=== PATIENT | female | born 2000 | race Caucasian/White ===

== ENCOUNTER 2022-07-19 17:48 | Inpatient (IN) | payer OTHER, SELFPAY ==
[2022-07-19] VITALS (11 sets, daily range): BP systolic 109–124; BP diastolic 56–65; PULSE 70–111; TEMP 36.6–36.7; O2SAT 97–100; BMI 27.1
[2022-07-19] MEDS: Lactated Ringers 1,000 ML 50 ML IV (18:34)
[2022-07-19 18:52] LABS: Absolute Lymphocyte Count 1.84 X10^3/uL (0.83-4.51); Absolute Neutrophil Count 9.5 X10^3/uL (2.0-7.7); Basophil# 0.04 X10^3/uL; Basophil% 0.3 % (0-1); Eosinophil# 0.12 X10^3/uL; Eosinophils% 0.9 % (0-5); Hematocrit 36.5 % (37-47); Hemoglobin 12.1 g/dL (12.0-15.0); Lymphocyte # 1.84 X10^3/ul (0.83-4.51); Lymphocyte % 14.4 % (19-41); Mean Corp Hgb Conc 33.2 g/dL (32-36); Mean Corpuscular Hgb 30.9 pg (27.0-32.0); Mean Corpuscular Volume 93.4 fL (81-99); Mean Platelet Vol. 10.2 fl (6.2-12.0); Monocyte# 1.13 X10^3/uL; Monocyte% 8.8 % (0-10); NRBC Flagged by Analyzer 0 % (0-5); Neutrophil # 9.46 X10^3/uL (2.7-7.7); Platelet Count 227 K/mm3 (150-450); RBC Distribution Width SD 44.4 fl (35.1-43.9); Red Blood Count 3.91 M/mm3 (4.2-5.4); White Blood Count 12.8 K/mm3 (4.4-11.0)
[2022-07-19] MEDS: Oxytocin 10 UNITS/ML Vial IM (21:41)
[2022-07-19] MEDS: fentaNYL 100 MCG/2 ML Ampul IV (21:57)
[2022-07-19] MEDS: 0.9% Saline Lock 10 ML Syringe IV (22:00)
--- NOTE | 2022-07-19 22:23 | HP.PCM.OB_ITS ---
HPI - General General Date of Admission: 07/19/22 HPI Narrative ANYA SIMS, is a 22 F at 39.4 weeks gestation that presents in spontaneous labor. She started having contractions this morning that continued throughout the day and increased in frequency and intensity. Positive movement. Denies any loss of fluid or vaginal bleeding. complicated by GBS positive, hx of depression and abnormal ultrasound of fetus. Seen by MFM for echogenic bowel and kidneys. 23 week US at [facility] normal. Follow up after delivery with [facility]. Maternal Data Information CHANCE Calculator Estimated Delivery Date Method Current WG Current Estimate 07/22/22 Manual 39w 4d Final CHANCE: 07/22/22 [facility] Medical History (Updated 07/19/22 @ 22:30 by Amena Walton CNM) Abnormal ultrasound Anemia Anxiety Depression Family history of congenital heart defect Fifth disease Home Medications ferrous sulfate 325 mg (65 mg iron) tablet (Iron (ferrous sulfate)) 325 mg PO DAILY 07/19/22 [History Last Taken 07/12/22 08:00] fgrdocvz-[id number]-Wf-FA 1 mg tablet 1 tab PO DAILY 07/19/22 [History Last Taken 07/19/22 09:00] Allergy/AdvReac Type Severity Reaction Status Date / Time No Known Allergies Allergy Verified 07/19/22 17:20 Social History Smoking Status: Former smoker History Elective abortions Hx Para 0 Spontaneous abortions Hx # Term Pregnancies Ectopic pregnancies Hx # Pregnancies Multiple births # of living children Visit Details OB Flowsheet Initial Weight: Not Recorded Date -?-?-?-?-?-?-?-?-?-?-?-?- EGA Weight BP Urine Prot -?-?-?-?-?-?-?-?-?-?-?-?- Glucose FHR FuHt Pres Dilation -?-?-?-?-?-?-?-?-?-?-?-?- Effaced St Visit Note 07/19/22 -?-?-?-?-?-?-?-?-?-?-?-?- 39w 4d 162 lb 11.218 oz 109 /57 119/59 124/61 121/65 -?-?-?-?-?-?-?-?-?-?-?-?- -?-?-?-?-?-?-?-?-?-?-?-?- ROS Eyes Eyes: Denies blurry vision, change in vision or spots in vision ENT HEENT: Denies dizziness or headache(s) Cardiovascular Cardiovascular: Denies abdominal pain, chest pain or dyspnea Respiratory/Chest Respiratory/Chest: Denies cough, dyspnea, shortness of breath at rest or shortness of breath with exertion Gastrointestinal Gastrointestinal: Denies abdominal pain, diarrhea or vomiting Genitourinary Genitourinary: Denies change in urinary stream, difficulty urinating or dysuria Musculoskeletal Musculoskeletal: Reports none Integumentary Integumentary: Denies rash Neurologic Neurologic: Denies dizziness, headache(s), memory loss or weakness Psychiatric Psychiatric: Reports none Vital Signs Vital Signs Vital Signs: 07/19/22 17:22 07/19/22 17:22 07/19/22 17:27 Temperature Temperature Source Temporal Pulse Rate 76 Blood Pressure 109/57 L BP Systolic 109 BP Diastolic 57 Pulse Ox 07/19/22 17:27 07/19/22 19:24 07/19/22 19:24 Temperature 98.1 F Temperature Source Pulse Rate 73 Blood Pressure 119/59 L BP Systolic 119 BP Diastolic 59 Pulse Ox 07/19/22 19:23 07/19/22 19:23 07/19/22 19:23 Temperature 98.1 F Temperature Source Temporal Pulse Rate Blood Pressure BP Systolic BP Diastolic Pulse Ox 100 07/19/22 22:20 07/19/22 22:20 07/19/22 22:20 Temperature Temperature Source Pulse Rate 98 111 H Blood Pressure 124/61 H BP Systolic 124 BP Diastolic 61 Pulse Ox 07/19/22 22:20 Temperature Temperature Source Pulse Rate Blood Pressure BP Systolic BP Diastolic Pulse Ox 97 Weight Weight: 162 lb 11.218 oz Body Mass Index (BMI) 27.1 Physical Exam Const alert and no apparent distress General Appearance: cooperative and comfortable Exam Limitations: no limitations HEENT normocephalic Eyes General Eye: normal appearance of both eyes Neck full ROM General: normal visual inspection Chest Chest: symmetrical chest wall rise Resp normal respiratory effort and normal air movement Effort and Inspection: symmetric chest movement Auscultation: clear to auscultation bilaterally Cardio regular rate and regular rhythm GI normal to inspection, nondistended, normoactive bowel sounds Back/Spine normal ROM Extremity full ROM and no calf tenderness General Extremity: normal exam except as noted Skin no rashes or lesions noted Neuro CN's II-XII intact bilaterally Psych mental status grossly normal Labs Labs Labs: Blood Type A POSITIVE Antibody Screen NEGATIVE Hct 36.5 % (37-47) L Hgb 12.1 g/dL (12.0-15.0) Rubella- immune HB neg HC- neg RPR- NR HIV-NR GBS positive Assessment & Plan (1) 39 weeks gestation of : (2) Spontaneous onset of labor: (3) Positive GBS test: PLAN: Plan Admit to labor and delivery Routine labs SL IV in between antibiotics CE 4.5/60/-1 TOCO- contractions every 1-3 minutes Pain medication if indicated Warm water immersion Start PCN 5 million units IV x1 now and run PCN 3 million units IV every 4 hours until delivery IA Anticipate Dr. Domínguez notified of admission and is collaborating physician
--- NOTE | 2022-07-19 22:36 | EX.PCM.OBRPT ---
Assessment & Plan (1) (spontaneous vaginal delivery): (2) Care and examination of lactating mother: Maternal Data Information CHANCE Calculator Estimated Delivery Date Method Current WG Current Estimate 07/22/22 Manual 39w 4d Vaginal Delivery Maternal Presentation Maternal Presentation: - Maternal Presentation: at 39.4 that presented in spontaneous labor. Operative Information Date of Procedure: 07/19/22 Pre-Operative Diagnosis: Term gestation, Spontaneous onset of labor Post-Operative Diagnosis: , Live female Surgery / Procedure Performed: Spontaneous Vaginal Delivery Type of Anesthesia: None Estimated Blood Loss: 400 Time of Delivery: 21:35 Findings Description of Procedure: Called to patient's room. Patient found to be complete dilation with bulging membranes. A.R.O.M for clear fluid. Patient pushing well with contractions. With maternal effort, head delivered over intact perineum followed by anterior shoulder and remainder of . Vigorous female placed on maternal abdomen and was attended to by nursing staff. Pitocin 10 mg IM x 1 given for active management of the third stage of labor. 3 vessel cord was clamped and cut by FOB after delay. True knot in cord. placed immediately skin to skin with patient. After inspection, vagina and perineum intact. Small labial laceration noted that was hemostatic and did not warrant repair. Fundus firm 2 below U. Bleeding moderate and after vaginal sweep, small amount of clots expressed. EBL 400 cc. APGARS 8/9. Infant and patient bonding well at this time. Presentation: Vertex Amniotic Membrane Rupture Type: Artificial Time of Membrane Rupture: 2100 Amniotic Fluid Description: Clear Placental Delivery Description: Spontaneous Placenta Disposition: [facility] Cord Vessel Description: 3 Vessels Cord Entanglement: True Knot(s) Infant A Gender: Female (1 minute): 8 (5 minute): 9 Delayed Cord Clamping: Yes Post Vaginal Delivery Medications Given After Delivery: - (IM pitocin) Episiotomy Description: None Laceration: Vaginal Extension/lac (left labial) Complication Complications: None
[2022-07-20 00:05] VITALS: BP 119/61; PULSE 81
[2022-07-20] MEDS: Acetaminophen 500 MG Tablet 1000 MG PO ×2 (01:10→14:53)
[2022-07-20 04:20] VITALS: BP 109/48; PULSE 82; RESP 16; TEMP 37.2; O2SAT 95
[2022-07-20 09:05] VITALS: BP 112/58; PULSE 77; RESP 18; TEMP 37.2; O2SAT 96
[2022-07-20] MEDS: Naproxen 500 MG Tablet PO ×2 (09:16→21:39)
[2022-07-20] MEDS: Benzocaine/Lanolin/Aloe Vera 1 SPRAY EACH TOPICAL (11:14)
[2022-07-20 13:05] VITALS: BP 107/51; PULSE 70; RESP 18; TEMP 36.7; O2SAT 95
--- NOTE | 2022-07-20 13:11 | PCM.PN.OB ---
Subjective Subjective Patient seen at bedside. Sitting in chair. Feeling good. Ambulating and voiding without difficulty. with support. Pain controlled. Anticipate discharge home tomorrow. Objective Data Objective Data Vital Signs: Vital Signs Temp Pulse Resp BP Pulse Ox O2 Del Method 99.0 F 77 18 112/58 L 96 Room Air 07/20/22 09:05 07/20/22 09:05 07/20/22 09:05 07/20/22 09:05 07/20/22 09:05 07/20/22 09:05 Oxygen Delivery Method Room Air Weight: 162 lb 11.218 oz Body Mass Index (BMI) 27.1 Intake & Output: Intake and Output for Last 24 Hours 07/18/22 07/19/22 07/20/22 23:59 23:59 23:59 Intake Total 166.67 / 166.67 Output Total 550 / 550 Balance 166.67 / 166.67 -550 / -550 Lab / Micro Data Result Diagrams: 07/19/22 18:30 Labs: Laboratory Results - last 24 hr 07/19/22 18:30: WBC 12.8 H, RBC 3.91 L, Hgb 12.1, Hct 36.5 L, MCV 93.4, MCH 30.9, MCHC 33.2, RDW Std Deviation 44.4 H, RDW Coeff of Aysha 13.0, Plt Count 227, MPV 10.2, Immature Gran % (Auto) 1.600 H, Neut % (Auto) 74.0 H, Lymph % (Auto) 14.4 L, Warren % (Auto) 8.8, Eos % (Auto) 0.9, Baso % (Auto) 0.3, Absolute Neuts (auto) 9.5 H, Absolute Lymphs (auto) 1.84, Nucleated RBC % 0 07/19/22 18:30: Blood Type A POSITIVE, Antibody Screen NEGATIVE ROS Eyes Eyes: Denies blurry vision, change in vision or spots in vision ENT HEENT: Denies dizziness or headache(s) Cardiovascular Cardiovascular: Denies abdominal pain, chest pain or dyspnea Respiratory/Chest Respiratory/Chest: Denies cough, dyspnea, shortness of breath at rest or shortness of breath with exertion Gastrointestinal Gastrointestinal: Denies abdominal pain, diarrhea or vomiting Genitourinary Genitourinary: Denies change in urinary stream, difficulty urinating or dysuria Musculoskeletal Musculoskeletal: Reports none Integumentary Integumentary: Denies rash Neurologic Neurologic: Denies dizziness, headache(s), memory loss or weakness Physical Exam Const alert and no apparent distress General Appearance: cooperative and comfortable Exam Limitations: no limitations HEENT normocephalic Eyes General Eye: normal appearance of both eyes Neck full ROM General: normal visual inspection Chest Chest: symmetrical chest wall rise Resp normal respiratory effort and normal air movement Effort and Inspection: symmetric chest movement Auscultation: clear to auscultation bilaterally Cardio regular rate and regular rhythm GI normal to inspection, nondistended, normoactive bowel sounds Back/Spine normal ROM Extremity full ROM and no calf tenderness General Extremity: normal exam except as noted Skin no rashes or lesions noted Neuro CN's II-XII intact bilaterally Psych mental status grossly normal Assessment & Plan (1) Care and examination of lactating mother: (2) (spontaneous vaginal delivery): PLAN: Plan PPD 1 Routine care support Anticipate discharge home tomorrow
[2022-07-20 17:05] VITALS: BP 99/55; PULSE 79; RESP 18; TEMP 36.9; O2SAT 96
[2022-07-20 21:41] VITALS: BP 103/61; PULSE 68; RESP 16; TEMP 36.6; O2SAT 96
[2022-07-21 03:00] VITALS: BP 100/60; PULSE 65; RESP 16; TEMP 36.3; O2SAT 65
[2022-07-21] MEDS: Naproxen 500 MG Tablet PO (05:09)
--- NOTE | 2022-07-21 08:31 | PCM.PROGNOTE ---
Subjective Subjective patient seen at bedside, doing well. Patient reports good pain control. lochia mild. Objective Data Objective Data Vital Signs: Vital Signs Temp Pulse Resp BP Pulse Ox O2 Del Method 97.9 F 63 16 102/51 L 65 Nasal Cannula 07/21/22 07:54 07/21/22 07:54 07/21/22 07:54 07/21/22 07:54 07/21/22 03:00 07/21/22 03:00 Oxygen Delivery Method Nasal Cannula Weight: 73.8 kg Body Mass Index (BMI) 27.1 Intake & Output: Intake and Output for Last 24 Hours 07/19/22 07/20/22 07/21/22 23:59 23:59 23:59 Intake Total 166.67 / 166.67 Output Total 850 / 850 Balance 166.67 / 166.67 -850 / -850 Lab / Micro Data Result Diagrams: 07/19/22 18:30 Physical Exam Const alert and oriented x3 General Appearance: cooperative HEENT normocephalic Neck General: normal visual inspection GI soft to palpation and non-distended GI Narrative: Fundus firm Extremity normal to inspection and no calf tenderness Skin no rashes or lesions noted Neuro oriented x3 and CN's II-XII intact bilaterally Psych mental status grossly normal Assessment & Plan Assessment/Plan (1) Care and examination of lactating mother: (2) (spontaneous vaginal delivery): PLAN: Plan PPD# 2 , Doing well Routine care pain mgmt ambulation dc home
--- NOTE | 2022-07-21 08:32 | DCINST_ITS ---
Discharge Instructions Procedure Vaginal Delivery Diet Discharge Diet: No restrictions Activity May resume sexual activity in: 6-8 weeks Dressing / Incision Call your doctor if you observe: Fever of 101 or Higher, Inability to urinate, Using more than 1 pad per hour and Uncontrolled pain Follow Up Care Please Follow Up With: Daija Vicente MD When: 1-2 weeks post and again at 6 weeks post . [phone] Test Results: Test results from this visit will be discussed in further detail at your follow- up appointment, if applicable. Discharge Plan Admission Admit Date/Time: 07/19/22 17:48 Attending Provider: Amena Walton Discharge Orders/Prescriptions Prescriptions: New naproxen 500 mg Tablet 500 mg PO Q8H PRN PRN (Reason: Pain Score 1-3) Qty: 0 0RF Continued ferrous sulfate [Iron (ferrous sulfate)] 325 mg (65 mg iron) Tablet 325 mg PO DAILY [id number]-FA 1 mg Tablet 1 tab PO DAILY Disposition Disposition (needs filled in before D/C Order can be placed): Home, Self Care
[2022-07-21 08:54] VITALS: BP 102/51; PULSE 63; RESP 16; TEMP 36.6
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
== END 2022-07-21 13:45 | disposition home or self-care (01) | DRG 807 ==
LOC: WP 21:39 → WPOUT 07-20 11:02
PROVIDERS: Admitting Provider Advanced Practice Midwife; Visit Provider Advanced Practice Midwife
DX: O99.824 Streptococcus B carrier state complicating childbirth (principal); Z37.0 Single live birth; O69.2XX0 Labor and delivery complicated by other cord entanglement, with compression, not applicable or unspecified; Z3A.39 39 weeks gestation of pregnancy; Z87.891 Personal history of nicotine dependence
CPT/HCPCS: 59025; 59050; 85025; 86850; 86900; 86901; 99218; J7120; A4216; G0378

== ENCOUNTER → 2023-05-05 | Outpatient (CLI) | payer OTHER, SELFPAY ==
[2023-05-05 13:42] LABS: Absolute Lymphocyte Count 2.42 X10^3/uL (0.83-4.51); Basophil# 0.03 X10^3/uL; Basophil% 0.4 % (0-1); Eosinophil# 0.16 X10^3/uL; Eosinophils% 2.3 % (0-5); Hematocrit 41.5 % (37-47); Hemoglobin 13.9 g/dL (12.0-15.0); Lymphocyte # 2.42 X10^3/ul (0.83-4.51); Lymphocyte % 34.4 % (19-41); Mean Corp Hgb Conc 33.5 g/dL (32-36); Mean Corpuscular Hgb 29.9 pg (27.0-32.0); Mean Corpuscular Volume 89.2 fL (81-99); Mean Platelet Vol. 10.8 fl (6.2-12.0); Monocyte# 0.44 X10^3/uL; Monocyte% 6.3 % (0-10); NRBC Flagged by Analyzer 0 % (0-5); Neutrophil # 3.97 X10^3/uL (2.7-7.7); Neutrophil % 56.5 % (47-70); Platelet Count 273 K/mm3 (150-450); RBC Distribution Width CV 12.4 % (11.6-14.6); RBC Distribution Width SD 40.6 fl (35.1-43.9); Red Blood Count 4.65 M/mm3 (4.2-5.4)
[2023-05-05 14:01] LABS: Progesterone Level 12.66 ng/mL (See Comment); Vitamin B12 574 pg/mL (211-911); Vitamin D,25 Hydroxy 46.6 ng/mL
[2023-05-05 14:32] LABS: ALB/GLOB Ratio 1.1 RATIO (0.9-2.4); AST(SGOT) 14 U/L (15-37); Alanine Aminotransfer ALT/SGPT 20 U/L (13-56); Albumin, Serum 4.7 g/dL (3.2-5.0); Alkaline Phosphatase 84 U/L (45-117); Anion Gap 8 (5-15); BUN 10 mg/dL (7-18); BUN/Creat Ratio 11.9 RATIO (10-20); Calcium,Total 9.1 mg/dL (8.5-10.1); Chloride 106 mmol/L (98-107); Creatinine, Serum 0.84 mg/dL (0.55-1.02); EST Glomerular Filtration Rate 87 mL/min (>60); Est Glom Filt Rate - Afr Amer 106 mL/min (>60); Estradiol 72.1 pg/mL; Free T3 2.9 pg/mL (2.18-3.98); Globulin 4.2 g/dL (2.2-4.2); Glucose 81 mg/dL (74-106); Potassium 3.5 mmol/L (3.5-5.1); Protein, Total 8.9 g/dL (6.4-8.2); Sodium Level 139 mmol/L (136-145); T4 Free Direct 1.09 ng/dL (0.76-1.46); Thyroid Stim Hormone (TSH) 1.36 uIU/mL (0.358-3.74)
== END | disposition home or self-care (01) ==
LOC: LABSPEC 13:08
PROVIDERS: Referring Provider Nurse Practitioner Family; Visit Provider Nurse Practitioner Family
DX: F32.81 Premenstrual dysphoric disorder (principal); N94.6 Dysmenorrhea, unspecified; N94.10 Unspecified dyspareunia
CPT/HCPCS: 80053; 82306; 82607; 82627; 82670; 84144; 84403; 84439; 84443; 84481; 85025; 82626